=== PATIENT | male | born 1990 | race Hispanic/Latino ===

== ENCOUNTER 2019-11-23 10:58 | Emergency (ER) | payer OTHER, SELFPAY ==
[2019-11-23 10:59] VITALS: BP 116/68; PULSE 64; PULSE 70; RESP 18; TEMP 36.6; O2SAT 96; O2SAT 97; BMI 37.9
--- NOTE | 2019-11-23 11:27 | ED.VIS.GEN ---
History of Present Illness Chief Complaint: Laceration Informant: Patient Onset: Today Narrative: Patient was sharpening a knife at work when it slipped and caused a laceration to the dorsum of the left hand at the base of the thumb. He denies any loss of motion of the thumb. He is unsure of his last tetanus shot. Past Medical History - Allergies and Home Meds Allergies/Adverse Reactions: Allergies No Known Allergies Allergy (Verified 11/23/19 10:59) Primary Care Physician: Care Physician,No Primary [Primary Care Provider] - Review of Systems General: Denies: Chills, Fever, Sweats Eyes: Denies: Visual changes - bilaterally, Diplopia ENT: Denies: Rhinorrhea, Sore throat Cardiovascular: Denies: Chest pain, Palpitations Respiratory: Denies: Dyspnea, Cough, Dyspnea on exertion Gastrointestinal: Denies: Abdominal pain, Nausea, Vomiting, Diarrhea, Melena, Hematochezia Genitourinary: Denies: Dysuria, Hematuria, Frequency Musculoskeletal: Denies: Back pain, Extremity Pain Skin: Denies: Rash, Wounds Neurological: Denies: Headache, Weakness, Numbness Physical Exam Vital Signs/Narrative: Vital Signs Temp Pulse Resp BP Pulse Ox 11/23/19 10:59 97.9 F 64 18 116/68 96 Inital Vital Signs reviewed: Yes General: Well nourished, Well developed, No Acute Distress Head: Normocephalic, Atraumatic Eyes: Perrl, EOMI ENT: Moist mucous membranes, No rhinorrhea Neck: Supple, Nontender Cardiovascular: Regular rate, Regular rhythm, No murmurs Respiratory: No distress, CTA bilaterally, Chest nontender Abdomen: Soft, Nontender, Nondistended, Normal bowel sounds Back: Nontender, Normal Inspection Extremities: Nontender, No edema Skin: Normal color, No rash, Trauma - There is a 2.5 cm linear laceration over the dorsum of the left hand near the first MTP joint. There is no loss of tendon function. No visualization of a tendon laceration Neurological: Alert, Oriented x3, Cranial nerves II-XII grossly intact, Normal Strength, Normal Sensation Psychological: Normal affect, Normal Mood Diagnostic/Tx/Re-eval - Medical Decision Making Wound was locally anesthetized using 1% lidocaine and washed with Shur-Clens irrigated and explored. It was closed using a total of 5 simple interrupted 4-0 Ethilon sutures. Wound was dressed with bacitracin and gauze. Stitches will need to be removed in 7 days. His tetanus was updated. ED Disposition - Plan for ED Patient: Disposition: LEFT WITHOUT BEING SEEN Diagnosis: Laceration of left hand Instructions: LACERATION, Hand Referrals: Clinic,NOW [NON-STAFF] - 7 Days for suture removal
[2019-11-23] MEDS: BACITRACIN 15 GM Tube 1 APPLIC TOPICAL (11:53)
[2019-11-23] MEDS: Diphth,Pertuss(Acell),Tet Vac 0.5 ML Vial IM (11:54)
== END 2019-11-23 12:12 | disposition home or self-care (01) ==
PROVIDERS: Emergency Provider Emergency Medicine
DX: S61.412A Laceration without foreign body of left hand, initial encounter (principal); W26.0XXA Contact with knife, initial encounter; Y93.9 Activity, unspecified; Y92.9 Unspecified place or not applicable
CPT/HCPCS: 12001; 90471; 90715; 99284

== ENCOUNTER 2019-11-25 13:55 | Emergency (ER) | payer OTHER, SELFPAY ==
[2019-11-25 13:21] VITALS: BMI 37.9
[2019-11-25 13:59] VITALS: BP 121/86; PULSE 93; RESP 17; TEMP 36.8; O2SAT 98; BMI 35.3
--- NOTE | 2019-11-25 14:11 | ED.DCSUM_ITS ---
History of Present Illness Chief Complaint: Laceration Informant: Patient Onset: Yesterday Context: Gradual Onset Timing: Continuous Current Severity: Moderate Maximum Severity: Moderate Narrative: The patient is a 29-year-old male that presents to the emergency department with thumb pain. The patient had a laceration of his thumb that was repaired 2 days ago. He states over the past day, he had some increased pain and swelling in the area. He denies any fevers or chills. He has no history of immunosuppression. He states there is been some mild increase in the drainage. He is right-hand dominant. Prior similar symptoms: No Recent Illness/Hospitalization: No Past Medical History - Allergies and Home Meds Allergies/Adverse Reactions: Allergies No Known Allergies Allergy (Verified 11/25/19 13:58) Primary Care Physician: Care Physician,No Primary [Primary Care Provider] - Prior records reviewed: Yes Past Medical History: None Surgical History: no surgical history Smoking Status: Never smoker Review of Systems General: Denies: Chills, Fever, Sweats Eyes: Denies: Visual changes - bilaterally, Diplopia ENT: Denies: Rhinorrhea, Sore throat Cardiovascular: Denies: Chest pain, Palpitations Respiratory: Denies: Dyspnea, Cough, Dyspnea on exertion Gastrointestinal: Denies: Abdominal pain, Nausea, Vomiting, Diarrhea, Melena, H ematochezia Genitourinary: Denies: Dysuria, Hematuria, Frequency Musculoskeletal: Denies: Back pain, Extremity Pain Skin: Denies: Rash, Wounds Neurological: Denies: Headache, Weakness, Numbness Physical Exam Vital Signs/Narrative: Vital Signs Temp Pulse Resp BP Pulse Ox 11/25/19 13:59 98.2 F 93 17 121/86 H 98 Inital Vital Signs reviewed: Yes General: Well nourished, Well developed, No Acute Distress Head: Normocephalic, Atraumatic Eyes: Perrl, EOMI ENT: Moist mucous membranes, No rhinorrhea Neck: Supple, Nontender Cardiovascular: Regular rate, Regular rhythm, No murmurs Respiratory: No distress, CTA bilaterally, Chest nontender Abdomen: Soft, Nontender, Nondistended, Normal bowel sounds Back: Nontender, Normal Inspection Extremities: No edema, Edema - Patient is tender overlying the laceration. There is no vanna purulence. There is no significant cellulitis or streaking. Pulses are normal. Skin: Normal color, No rash Neurological: Alert, Oriented x3, Cranial nerves II-XII grossly intact, Normal Strength, Normal Sensation Psychological: Normal affect, Normal Mood Diagnostic/Tx/Re-eval - Medical Decision Making The patient presents with increasing pain at his surgical site. There is no significant evidence of infectious process. There is no streaking or cellulitis. There is minimal edema. I did remove 2 sutures of the 5. There was no vanna dehiscence of the wound. I cannot express any purulence from the area. The skin itself is well-appearing. At this point, I am going to place the patient on Keflex. His wound will be cleaned and dressed. He will be discharged to home. He was counseled on concerning symptoms and reasons to return. He is comfortable with this plan of care. Impression 1. Suture check ED Disposition - Plan for ED Patient: Instructions: POST OP WOUND CHECK, Pain Prescriptions: Cephalexin [Keflex] 500 mg PO Q6 #40 cap Prescription Printed Referrals: Care Physician,No Primary [Primary Care Provider] -
[2019-11-25] MEDS: Acetaminophen 500 MG Tablet 1000 MG PO (14:34)
[2019-11-25] MEDS: Cephalexin 250 MG Capsule 500 MG PO (14:34)
== END 2019-11-25 14:42 | disposition home or self-care (01) ==
PROVIDERS: Emergency Provider Emergency Medicine
DX: Z48.02 Encounter for removal of sutures (principal)
CPT/HCPCS: 99283